=== PATIENT | male | born 2000 | race African-American/Black ===

== ENCOUNTER 2022-06-14 17:23 | Emergency (ER) | payer OTHER, SELFPAY ==
[2022-06-14 17:24] VITALS: BP 132/80; PULSE 114; RESP 16; TEMP 36.6; O2SAT 98; BMI 34.4
--- NOTE | 2022-06-14 17:43 | EDS_ITS ---
HPI History of Present Illness Chief Complaint: Lower Extremity Injury Detail of Chief Complaint: Injury to left foot Informant: patient Narrative Narrative: Patient presents the emergency department with complaint of injury to his left foot that occurred earlier today. Patient states that he was coming down some steps and lost his balance and twisted fell to the side injuring his left foot/ankle. Patient unable to bear weight initially now he can put a little bit of weight on it. He denies any other injuries. PFSH PFSH Medical History no medical history Allergy/AdvReac Type Severity Reaction Status Date / Time No Known Allergies Allergy Verified 06/14/22 17:24 Social History Smoking Status: Never smoker ROS ROS ED Review of Systems ROS Unobtainable: other Constitutional Constitutional ED: Reports lethargy; Denies chills, fever(s), sweats or weight loss Eyes Eyes: Denies blurry vision, change in vision or diplopia ENT ENT ED: Denies rhinorrhea or sore throat Cardiovascular Cardiovascular: Reports chest pain and racing heartbeat; Denies orthopnea Respiratory/Chest Respiratory/Chest: Reports dyspnea and dyspnea on exertion; Denies cough, orthopnea or sputum Gastrointestinal Gastrointestinal: Denies abdominal pain, diarrhea, nausea or vomiting Genitourinary Genitourinary ED: Denies dysuria, hematuria or urinary frequency Musculoskeletal Musculoskeletal: Reports other Details: Left foot/ankle pain ; Denies arthralgias, back pain, myalgias or neck pain Integumentary Denies abscess, Abrasions or rash Neurologic Neurologic: Denies headache(s) or weakness Psychiatric Psychiatric: Denies anxiety, depression or suicidal thoughts Endocrine Endocrinology: Denies polydipsia, polyphagia or polyuria Hematologic/Lymphatic Hematologic/Lymphatic: Denies easy bleeding, easy bruising or lymphadenopathy Allergic/Immunologic Allergic/Immunologic ED: Denies mouth swelling, tongue swelling or urticaria EXAM Physical Exam Const Vital Signs: 06/14/22 17:24 Temperature 97.9 F Temperature Source Temporal Pulse Rate 114 H Respiratory Rate 16 Blood Pressure 132/80 H Blood Pressure Mean 97 Pulse Ox 98 Oxygen Delivery Method Room Air Positive well nourished and well developed General Appearance ED: well developed and NAD HEENT Reports TM's clear and moist mucous membranes normocephalic and atraumatic; Negative for trauma or tenderness Tympanic Membrane ED: Yes TM's clear Eyes PERRL and EOMs intact bilaterally General Eye ED: Negative for pale conjunctiva or scleral icterus Neck no lymphadenopathy, supple and no JVD General: Negative for tenderness Chest Wall inspection of chest normal and palpation of chest normal Chest: Negative for tenderness Resp normal respiratory effort and clear to auscultation bilaterally Effort and Inspection: Negative for respiratory distress or pain with movement Auscultation: Negative for rhonchi, wheezes or diminished lung sounds Cardio regular rate, regular rhythm, S1 normal heart sound, S2 normal heart sound and no murmurs Peripheral Pulses: pulses 2+ throughout GI normal to inspection, nondistended, normoactive bowel sounds, soft to palpation, non-tender, non-distended and no masses Back/Spine no CVA tenderness and no thoracic nor lumbar tenderness Extremity Extremity Narrative: Left foot-patient has tenderness to palpation over the talus that seems to reproduce his pain. Patient has tenderness over the talotibial joint. Patient has no real discomfort over the medial or lateral malleolus. No pain at the base of the fifth metatarsal. No pain at the proximal fibular head. Neurovascularly intact distally. General Extremety ED: Negative for edema General Extremity: Negative for edema Neuro oriented x3, CN's II-XII intact bilaterally, no sensory deficits noted and gait normal Sensorium / Orientation: awake, alert, oriented to person, oriented to place and oriented to time Motor Exam: strength 5/5 throughout and strength abnormal Psych mental status grossly normal Skin no rashes or lesions noted and no wounds MDM MDM MDM Narrative Medical decision making narrative: Patient did not want an air splint. Patient does have an Rasta wrap and crutches and does not require any. Patient advised use ibuprofen or Tylenol for discomfort. He will be given referral to primary care physician for follow-up and advised to follow-up in 5 to 7 days. Radiography Diagnostic Testing: Clinical Impression(s) from Imaging Studies Foot X-Ray 06/14/22 17:49 IMPRESSION: No acute fracture or dislocation. Electronically Signed: Bo Campa DO at 18:02 EDT Reading Location ID and State: [address] [place] [address] Tel [phone], Service support , Three-view x-rays of the left foot obtained interpreted by myself no acute fractures or dislocations. Radiology was in agreement. Discharge Plan Triage Chief Complaint: Lower Extremity Injury ED Provider: Leon Doss Dx/Rx/DC Orders Clinical Impression: Sprain of foot, left Instructions: ED Foot Sprain, ED Ankle Sprain (Adult) Primary Care Provider: Han Baptiste Referrals: Han Baptiste MD [Primary Care Provider] - 5-7 Days [facility] Doctor,Out of [Non-Staff] - Disposition Disposition: Home, Self Care
--- NOTE | 2022-06-14 17:49 | RAD_ITS ---
STUDY: X-RAY - LEFT FOOT CLINICAL: Male, 22 years old. Fall down concrete steps. Pain. TECHNIQUE: 3 view(s) of the foot. COMPARISON: None. FINDINGS: Normal talus, calcaneus, and tarsal bones. Normal visualized subtalar, talonavicular, calcaneocuboid, tarsal and tarsometatarsal articulations. Normal metatarsi. Normal metatarsophalangeal joint of the great toe. Normal tibial and fibular sesamoid bones. Normal interphalangeal joint of the great toe. Normal phalanges of the great toe. Normal second through fifth metatarsophalangeal joints. Normal interphalangeal joints and phalanges of the lesser toes. The soft tissue structures are unremarkable. RAD/Foot min 3 Views IMPRESSION: No acute fracture or dislocation. Electronically Signed: Bo Campa DO at 18:02 EDT ,
== END 2022-06-14 18:34 | disposition home or self-care (01) ==
PROVIDERS: Emergency Provider Emergency Medicine; PCP Pediatrics; Visit Provider Emergency Medicine
DX: S93.602A Unspecified sprain of left foot, initial encounter (principal); X50.1XXA Overexertion from prolonged static or awkward postures, initial encounter
CPT/HCPCS: 73630; 99282